=== PATIENT | male | born 1970 | race Caucasian/White ===

== ENCOUNTER 2019-03-12 14:27 | Emergency (ER) | payer BC, OTHER ==
[~2019-03-12] VITALS: Ht 180.3 cm; Wt 84.5 kg
[~2019-03-12 14:27] MED LIST: NO MEDS
[2019-03-12 14:38] VITALS: BP 156/82; PULSE 83; RESP 18; Ht 180.3 cm; Wt 84.5 kg
[2019-03-12] MEDS ORDERED: CIPR500T4 PO (14:56)
[2019-03-12] MEDS ORDERED: ACET-141 PO (14:56)
[2019-03-12] MEDS ORDERED: CPRHC10OT OTIC (14:56)
--- NOTE | 2019-03-12 14:58 | ERD ---
ER Documentation Chief Complaint Chief Complaint bilateral ear pain x 5 days ROS All systems reviewed and are negative except as per history of present illness. Medications Home Meds Active Scripts Acetaminophen* (Acetaminophen*) 500 MG Extra Strength Tablet, 500 MG PO Q4H PRN for PAIN AND OR ELEVATED TEMP, #30 TAB Prov:DILLON MAR DO 03/12/19 Ciprofloxacin Hcl* (Ciprofloxacin Hcl*) 500 Mg Tablet, 500 MG PO BID for ear infection for 7 Days, #14 TAB Prov:DILLON MAR DO 03/12/19 Ciprofloxacin Hcl/HC (Cipro HC Otic Suspension) 10 Ml Drops.susp, 3 DROP OTIC BID for ear infection for 7 Days, #1 BOTTLE Prov:DILLON MAR DO 03/12/19 Reported Medications [No Meds] No Conflict Check 06/07/10 Allergies Allergies: Coded Allergies: No Known Allergies (Verified Allergy, Mild, 06/07/10) PMhx/Soc History of Surgery: No Anesthesia Reaction: No Hx Neurological Disorder: No Hx Respiratory Disorders: No Hx Cardiac Disorders: No Hx Psychiatric Problems: No Hx Miscellaneous Medical Probl: No Hx Alcohol Use: Yes Hx Substance Use: No Hx Tobacco Use: No Physical Exam Vitals Vital Signs Date Temp Pulse Resp B/P (MAP) Pulse Ox O2 O2 Flow FiO2 Time Delivery Rate 03/12/19 98.0 83 18 156/82 97 14:38 (106) Physical Exam Const: No acute distress Head: Atraumatic Eyes: Normal Conjunctiva ENT: Normal External Ears, Nose and Mouth. Neck: Full range of motion. No meningismus. Resp: Clear to auscultation bilaterally Cardio: Regular rate and rhythm, no murmurs Abd: Soft, non tender, non distended. Normal bowel sounds Skin: No petechiae or rashes Back: No midline or flank tenderness Ext: No cyanosis, or edema Neur: Awake and alert Psych: Normal Mood and Affect Departure Diagnosis: Primary Impression: Otitis externa Otitis externa type: unspecified type Chronicity: acute Laterality: bilateral Qualified Codes: H60.503 - Unspecified acute noninfective otitis externa, bilateral Condition: Fair Patient Instructions: External Ear Infection (Adult) Referrals: [facility] YOU HAVE RECEIVED A MEDICAL SCREENING EXAM AND THE RESULTS INDICATE THAT YOU DO NOT HAVE A CONDITION THAT REQUIRES URGENT TREATMENT IN THE EMERGENCY DEPARTMENT. FURTHER EVALUATION AND TREATMENT OF YOUR CONDITION CAN WAIT UNTIL YOU ARE SEEN IN YOUR DOCTORS OFFICE WITHIN THE NEXT 1-2 DAYS. IT IS YOUR RESPONSIBILITY TO MAKE AN APPOINTMENT FOR FOLOW-UP CARE. IF YOU HAVE A PRIMARY DOCTOR --you should call your primary doctor and schedule an appointment IF YOU DO NOT HAVE A PRIMARY DOCTOR YOU CAN CALL OUR PHYSICIAN REFERRAL HOTLINE AT IF YOU CAN NOT AFFORD TO SEE A PHYSICIAN YOU CAN CHOSE FROM THE FOLLOWING [facility] [address] [facility] [address] [facility] [address] [facility] [address] [facility]. [facility] [address] [facility]. [facility]. [address] Additional Instructions: Call your primary care doctor TOMORROW for an appointment during the next 1-2 days.See the doctor sooner or return here if your condition worsens before your appointment time. DILLON MAR DO Mar 12, 2019 14:58
== END 2019-03-12 15:28 | disposition home or self-care (01) ==
LOC: FTE 14:27
DX: H60.503 Unspecified acute noninfective otitis externa, bilateral (principal)
CPT/HCPCS: 99283

== ENCOUNTER 2019-03-19 12:57 | Emergency (ER) | payer OTHER ==
[~2019-03-19] VITALS: Ht 180.3 cm; Wt 83.5 kg
[~2019-03-19 12:57] MED LIST changes: +ACET-141 PO; +CIPR500T4 PO; +CPRHC10OT OTIC
[2019-03-19 13:07] VITALS: Ht 180.3 cm; Wt 83.5 kg
[2019-03-19] MEDS ORDERED: CARB-155 BOTH EARS (13:45)
--- NOTE | 2019-03-19 13:46 | ERD ---
ER Documentation Chief Complaint Chief Complaint Bilateral ear infection 1 week ago; Pt states hearing loss on both sides HPI 48-year-old male presents ED complaining of decreased hearing in bilateral ears. He states that he recently had an ear infection in both ears 1 week ago which he reported to the ED and was treated with outpatient antibiotics of Ciprodex eardrops and ciprofloxacin tablets. He reports that he just finished his regimen yesterday and feels much better as a result. He denies any fevers, ear pain or any ear discharge. However he reports decreased hearing in his ears and states that his ears are dirty. He is asking for us to clean his ears out today. He denies tenderness to his mastoid processes. He denies past medical history. ROS All systems reviewed and are negative except as per history of present illness. Medications Home Meds Active Scripts Carbamide Peroxide* (Debrox*) 6.5% -15 Ml Drops, 10 DROP BOTH EARS BID for 5 Days, EA Prov:JANY ARELLANO PA-C 03/19/19 Acetaminophen* (Acetaminophen*) 500 MG Extra Strength Tablet, 500 MG PO Q4H PRN for PAIN AND OR ELEVATED TEMP, #30 TAB Prov:DILLON MAR DO 03/12/19 Ciprofloxacin Hcl* (Ciprofloxacin Hcl*) 500 Mg Tablet, 500 MG PO BID for ear infection for 7 Days, #14 TAB Prov:DILLON MAR DO 03/12/19 Ciprofloxacin Hcl/HC (Cipro HC Otic Suspension) 10 Ml Drops.susp, 3 DROP OTIC BID for ear infection for 7 Days, #1 BOTTLE Prov:DILLON MAR DO 03/12/19 Reported Medications [No Meds] No Conflict Check 06/07/10 Allergies Allergies: Coded Allergies: No Known Allergies (Verified Allergy, Mild, 06/07/10) PMhx/Soc History of Surgery: Yes (appendectomy) Anesthesia Reaction: No Hx Neurological Disorder: No Hx Respiratory Disorders: No Hx Cardiac Disorders: No Hx Psychiatric Problems: No Hx Miscellaneous Medical Probl: No Hx Alcohol Use: Yes (rare) Hx Substance Use: No Hx Tobacco Use: No FmHx Family History: No diabetes Physical Exam Vitals Vital Signs Date Temp Pulse Resp B/P (MAP) Pulse Ox O2 O2 Flow FiO2 Time Delivery Rate 03/19/19 98.7 74 18 130/75 97 13:07 (93) Physical Exam Const: No acute distress Head: Atraumatic Eyes: Normal Conjunctiva ENT: Normal External Ears, Nose and Mouth. Inner ears: Bilaterally both ears with significant cerumen impaction. Patient hard at hearing when rubbing fingers together in patient's ear. No mastoid tenderness, ear canals nonerythematous, nonbulging tympanic membrane Neck: Full range of motion. Resp: Clear to auscultation bilaterally Cardio: Regular rate and rhythm, no murmurs Abd: Soft, non tender, non distended. Normal bowel sounds Skin: No petechiae or rashes Back: No midline or flank tenderness Ext: No cyanosis, or edema Neur: Awake and alert Psych: Normal Mood and Affect Procedures/MDM ED COURSE: The patient was stable throughout ED course. I kept the patient informed of lab oratory and diagnostic imaging results throughout the ED course. PROCEDURES: Ear Irrigation, bilaterally MEDICATIONS GIVEN: [None.] MEDICAL DECISION MAKING: Patient is a 48-year-old male status post bilateral otitis externa infection x1 week. He states he finished his course of ciprofloxacin tablets and Ciprodex eardrops yesterday and states he is feeling much better. He denies any fevers or ear pain, or tenderness to the mastoid process. He is here asking for us to clean his ears out as he has had decreased hearing in bilateral ears. On physical exam both ears have significant amount of cerumen impaction. Ear irrigation was done bilaterally in both ears and the patient hearing improved. H&P and other data not c/w emergent process (eg. SAIRA, meningitis, mastoiditis). Patient was also given a prescription for Debrox for home treatment. Vital signs were reviewed. Patient is afebrile. Patient was not hypoxic. Patient was hemodynamically stable. Patient was told to follow up with primary care for f urther care and management. PRESCRIPTION: Debrox DISCHARGE: At this time, patient is stable for discharge and outpatient management. I have instructed the patient to follow-up with his/her primary care physician in 1-2 days. I have discussed with the patient the possibility of needing to see a specialist for further workup and imaging studies if symptoms persist. I have instructed the patient to promptly return to the ER for any new or worsening symptoms including increased pain, fever, nausea, vomiting, weakness or LOC. The patient expressed understanding of and agreement with this plan. All questions were answered. Home care instructions were provided. Disclaimer: Inadvertent spelling and grammatical errors are likely due to EHR/dictation software use and do not reflect on the overall quality of patient care. Also, please note that the electronic time recorded on this note does not necessarily reflect the actual time of the patient encounter. Departure Diagnosis: Primary Impression: Cerumen impaction Laterality: bilateral Qualified Codes: H61.23 - Impacted cerumen, bilateral Condition: Fair Patient Instructions: Cerumen Impaction, Home Care Referrals: [facility] YOU HAVE RECEIVED A MEDICAL SCREENING EXAM AND THE RESULTS INDICATE THAT YOU DO NOT HAVE A CONDITION THAT REQUIRES URGENT TREATMENT IN THE EMERGENCY DEPARTMENT. FURTHER EVALUATION AND TREATMENT OF YOUR CONDITION CAN WAIT UNTIL YOU ARE SEEN IN YOUR DOCTORS OFFICE WITHIN THE NEXT 1-2 DAYS. IT IS YOUR RESPONSIBILITY TO MAKE AN APPOINTMENT FOR FOLOW-UP CARE. IF YOU HAVE A PRIMARY DOCTOR --you should call your primary doctor and schedule an appointment IF YOU DO NOT HAVE A PRIMARY DOCTOR YOU CAN CALL OUR PHYSICIAN REFERRAL HOTLINE AT IF YOU CAN NOT AFFORD TO SEE A PHYSICIAN YOU CAN CHOSE FROM THE FOLLOWING [facility] [address] [facility] [address] [facility] [address] [facility] [facility] [address] [facility] [facility] [address] [facility] [facility]. [address] [facility] YOU HAVE RECEIVED A MEDICAL SCREENING EXAM AND THE RESULTS INDICATE THAT YOU DO NOT HAVE A CONDITION THAT REQUIRES URGENT TREATMENT IN THE EMERGENCY DEPARTMENT. FURTHER EVALUATION AND TREATMENT OF YOUR CONDITION CAN WAIT UNTIL YOU ARE SEEN IN YOUR DOCTORS OFFICE WITHIN THE NEXT 1-2 DAYS. IT IS YOUR RESPONSIBILITY TO MAKE AN APPOINTMENT FOR FOLOW-UP CARE. IF YOU HAVE A PRIMARY DOCTOR --you should call your primary doctor and schedule and appointment IF YOU DO NOT HAVE A PRIMARY DOCTOR YOU CAN CALL OUR PHYSICIAN REFERRAL HOTLINE AT . IF YOU CAN NOT AFFORD TO SEE A PHYSICIAN YOU CAN CHOSE FROM THE FOLLOWING [facility] INSTIT[facility]IONS: [facility] [address] [place] [address] [facility] [address] [place] [address] [facility] [address] [place] [address] Additional Instructions: Call your primary care doctor TOMORROW for an appointment during the next 2-3 days.See the doctor sooner or return here if your condition worsens before your appointment time. JANY ARELLANO PA-C Mar 19, 2019 13:46
[2019-03-19 14:30] VITALS: BP 111/73; PULSE 65; RESP 16
== END 2019-03-19 14:30 | disposition home or self-care (01) ==
LOC: FTE 12:57
DX: H61.23 Impacted cerumen, bilateral (principal)
CPT/HCPCS: 69209; Z7502